=== PATIENT | female | born 1960 | race Two or more races ===

== ENCOUNTER 2016-09-16 19:34 | Emergency (ER) | payer BC ==
[~2016-09-16] VITALS: Ht 160 cm; Wt 71.7 kg
[2016-09-16 20:15] VITALS: BP 103/70
== END 2016-09-16 23:25 | disposition home or self-care (01) ==
LOC: ER 23:04
DX: M79.1 Myalgia (principal); V89.2XXA Person injured in unspecified motor-vehicle accident, traffic, initial encounter; Y93.89 Activity, other specified; Y99.8 Other external cause status; Y92.488 Other paved roadways as the place of occurrence of the external cause